=== PATIENT | male | born 1945 | race Caucasian/White ===

== ENCOUNTER 2018-02-15 14:31 | Observation (INO) | payer MEDICARE ==
[~2018-02-15] VITALS: Ht 177.8 cm; Wt 85.0 kg
[~2018-02-15 14:31] MED LIST: COZA50TA
[2018-02-15 14:35] VITALS: BP 172/88; PULSE 76; RESP 16; TEMP 98.6; O2SAT 98
[2018-02-15 14:43] VITALS: PULSE 77; RESP 18; TEMP 99.5; O2SAT 98
[2018-02-15] MEDS ORDERED: SODIUM CHLOR 0.9% 1000 ML INJ 1,000 ML IV ONE ×2 (14:47)
--- NOTE | 2018-02-15 15:01 | PD ---
HPI Chief Complaint: Fever Time Seen by Provider: 14:40 Travel History International Travel<30 days: No Contact w/Intl Traveler<30days: No Traveled to known affect area: No History of Present Illness HPI 72-year-old male presents with fevers since being discharged from [facility] yesterday. His T-max was 100.5. He was given Tylenol 1 hour prior to arrival. He states that he is also been having nausea and diarrhea. His states that when he was in the hospital he was septic and reveals records and states he had E. coli and was discharged on ciprofloxacin. She is concerned that the infection is not being fully treated and she wanted to get a second opinion. The patient denies any other concurrent complaints. Quality is high. Severity is 100.5. Duration is since discharge yesterday. PFSH Past Medical History Cancer: Yes (TONGUE) Cardiovascular Problems: Yes Diminished Hearing: No Genitourinary: Yes (POLYSYSTIC KIDNEY DISEASE) Hypertension: Yes Implanted Vascular Access Dvce: Yes (RT CHEST PORT) Kidney Stones: Yes Tetanus Vaccination: < 5 Years Influenza Vaccination: No Past Surgical History Genitourinary Surgery: Yes (LITHOTRIPSY ) Oral Surgery: Yes (CA ON TONGUE) Social History Alcohol Use: Yes (APPROX. 3 DRINKS PER DAY) Tobacco Use: No Substance Use: No Allergies-Medications (Allergen,Severity, Reaction): Coded Allergies: No Known Allergies (Verified Allergy, Mild, 03/15/06) Reported Meds & Prescriptions Reported Meds & Active Scripts Active Review of Systems Except as stated in HPI: all other systems reviewed are Neg Physical Exam Narrative GENERAL: 72-year-old male in no apparent distress SKIN: Focused skin assessment warm/dry. HEAD: Atraumatic. Normocephalic. EYES: Pupils equal and round. No scleral icterus. No injection or drainage. ENT: No nasal bleeding or discharge. Mucous membranes pink and moist. NECK: Trachea midline. CARDIOVASCULAR: Regular rate and rhythm. RESPIRATORY: No accessory muscle use. Clear to auscultation. Breath sounds equal bilaterally. GASTROINTESTINAL: Abdomen soft, non-tender, nondistended. MUSCULOSKELETAL: No obvious deformities. No clubbing. No cyanosis. No edema. NEUROLOGICAL: Awake and alert. No obvious cranial nerve deficits. Motor grossly within normal limits. Normal speech. PSYCHIATRIC: Appropriate mood and affect; insight and judgment normal. Data Data Last Documented VS Vital Signs Date Time Temp Pulse Resp B/P (MAP) Pulse Ox O2 Delivery O2 Flow Rate FiO2 02/15/18 15:17 70 18 150/80 (103) 99 Room Air 02/15/18 14:43 99.5 Orders Orders Sepsis Workup Initiated (02/15/18 ) Electrocardiogram (02/15/18 14:47) Complete Blood Count With Diff (02/15/18 14:47) Comprehensive Metabolic Panel (02/15/18 14:47) Prothrombin Time / Inr (Pt) (02/15/18 14:47) Act Partial Throm Time (Ptt) (02/15/18 14:47) Lactic Acid Sepsis Protocol (02/15/18 14:47) Magnesium (Mg) (02/15/18 14:47) Phosphorus (Po4) (02/15/18 14:47) Urinalysis - C+S If Indicated (02/15/18 14:47) Blood Culture (02/15/18 14:47) Chest, Single Ap (02/15/18 14:47) Ecg Monitoring (02/15/18 14:47) Iv Access Insert/Monitor (02/15/18 14:47) Oximetry (02/15/18 14:47) Sodium Chlor 0.9% 1000 Ml Inj (Ns 1000 M (02/15/18 14:47) Sodium Chlor 0.9% 1000 Ml Inj (Ns 1000 M (02/15/18 14:47) Piperacil-Tazo 3.375 Gm Premix (Zosyn 3. (02/15/18 17:00) Admit Order (Ed Use Only) (02/15/18 17:02) Labs Laboratory Tests Test 02/15/18 15:10 02/15/18 15:45 White Blood Count 5.6 TH/MM3 Red Blood Count 3.34 MIL/MM3 Hemoglobin 11.2 GM/DL Hematocrit 33.0 % Mean Corpuscular Volume 98.7 FL Mean Corpuscular Hemoglobin 33.4 PG Mean Corpuscular Hemoglobin Concent 33.9 % Red Cell Distribution Width 14.8 % Platelet Count 183 TH/MM3 Mean Platelet Volume 8.8 FL Neutrophils (%) (Auto) 84.1 % Lymphocytes (%) (Auto) 3.8 % Monocytes (%) (Auto) 10.8 % Eosinophils (%) (Auto) 0.9 % Basophils (%) (Auto) 0.4 % Neutrophils # (Auto) 4.7 TH/MM3 Lymphocytes # (Auto) 0.2 TH/MM3 Monocytes # (Auto) 0.6 TH/MM3 Eosinophils # (Auto) 0.0 TH/MM3 Basophils # (Auto) 0.0 TH/MM3 CBC Comment DIFF FINAL Differential Comment Blood Urea Nitrogen 15 MG/DL Creatinine 1.53 MG/DL Random Glucose 110 MG/DL Total Protein 6.3 GM/DL Albumin 2.2 GM/DL Calcium Level 8.1 MG/DL Phosphorus Level 2.5 MG/DL Magnesium Level 2.0 MG/DL Alkaline Phosphatase 191 U/L Aspartate Amino Transf (AST/SGOT) 42 U/L Alanine Aminotransferase (ALT/SGPT) 40 U/L Total Bilirubin 0.5 MG/DL Sodium Level 138 MEQ/L Potassium Level 3.7 MEQ/L Chloride Level 106 MEQ/L Carbon Dioxide Level 20.5 MEQ/L Anion Gap 12 MEQ/L Estimat Glomerular Filtration Rate 45 ML/MIN Lactic Acid Level 1.4 mmol/L Urine Color YELLOW Urine Turbidity CLEAR Urine pH 6.0 Urine Specific [place] 1.013 Urine Protein 30 mg/dL Urine Glucose (UA) NEG mg/dL Urine Ketones NEG mg/dL Urine Occult Blood NEG Urine Nitrite NEG Urine Bilirubin NEG Urine Urobilinogen LESS THAN 2.0 MG/DL Urine Leukocyte Esterase NEG Urine RBC 1 /hpf Urine WBC LESS THAN 1 /hpf Urine Mucus FEW /lpf Microscopic Urinalysis Comment CATH-CULT NOT IND MDM Medical Decision Making Medical Screen Exam Complete: Yes Emergency Medical Condition: Yes Medical Record Reviewed: Yes (Past history confirmed, multiple records from [facility] noted with 1 blood culture showing E. coli. Given Zosyn and then changed to ciprofloxacin. Initially he had acute renal failure as well.) Interpretation(s) CBC & BMP Diagram 02/15/18 15:10 Total Protein 6.3 L, Albumin 2.2 L, Calcium Level 8.1 L, Phosphorus Level 2.5, Magnesium Level 2.0, Alkaline Phosphatase 191 H, Aspartate Amino Transf (AST/ SGOT) 42 H, Alanine Aminotransferase (ALT/SGPT) 40, Total Bilirubin 0.5 Last 24 hours Impressions Chest X-Ray 02/15/18 1447 Signed Impressions: CONCLUSION: Compensated cardiomegaly. Elevation right hemidiaphragm. Differential Diagnosis Sepsis, UTI, gastroenteritis, renal failure Narrative Course Will check blood work, urinalysis, imaging and dose with IV fluids and reevaluate labs wnl, but given persistent fevers with recent sepsis I advised observation to the hospital for IV antibiotics and monitoring of blood culture. Patient states he is leaving AMA. AMA: The risks of leaving against medical advice without further evaluation treatment were discussed with the patient. These risks include cardiac dysfunction, cardiac dysrhythmia, possible heart attack, possible stroke or . The patient indicated understanding of these risks and appeared to have the capacity to make this decision. Physician Communication Physician Communication dr saldaña agrees to admit then updated patient decided to leave ama Diagnosis Primary Impression: Fever Qualified Codes: R50.9 - Fever, unspecified Additional Impressions: Diarrhea Qualified Codes: R19.7 - Diarrhea, unspecified Nausea Admitting Information Admitting Physician Requests: Observation Disposition: 07 AGAINST MEDICAL ADVICE Condition: Trinidad Wallace MD Feb 15, 2018 15:01
[2018-02-15 15:17] VITALS: BP 150/80; PULSE 70; RESP 18; O2SAT 99
[2018-02-15 15:35] LABS: AUTOMATED NEUTROPHIL # 4.7 TH/MM3 (1.8-7.7); BASOPHIL % 0.4 % (0.0-2.0); EOSINOPHIL % 0.9 % (0.0-4.0); HEMOGLOBIN 11.2 GM/DL (13.0-17.0); LYMPH % 3.8 % (9.0-44.0); LYMPHOCYTE # 0.2 TH/MM3 (1.0-4.8); MEAN CELL VOLUME 98.7 FL (80.0-100.0); MEAN CORPUSCULAR HEMOGLOBIN 33.4 PG (27.0-34.0); MEAN CORPUSCULAR HGB CONC 33.9 % (32.0-36.0); MEAN PLATELET VOLUME 8.8 FL (7.0-11.0); MONO % 10.8 % (0.0-8.0); MONOCYTE # 0.6 TH/MM3 (0-0.9); NEUT % 84.1 % (16.0-70.0); PLATELET COUNT 183 TH/MM3 (150-450); RED BLOOD COUNT 3.34 MIL/MM3 (4.50-5.90); RED CELL DISTRIBUTION WIDTH 14.8 % (11.6-17.2); WHITE BLOOD COUNT 5.6 TH/MM3 (4.0-11.0)
--- NOTE | 2018-02-15 16:07 | RADRPT ---
EXAM DATE: 02/15/2018 3:34 PM EDT AGE/SEX: 72 years / Male INDICATIONS: Fever. Just discharged from the hospital 24 hours ago. CLINICAL DATA: This is the patient's initial encounter. Patient reports that signs and symptoms have been present for 1 day and indicates a pain score of 0/10. MEDICAL/SURGICAL HISTORY: . bacterial infection. Small aortic aneurysm None. COMPARISON: No prior exams available for comparison. FINDINGS: [id number] in good position. Lungs are under aerated. With elevation right hemidiaphragm. Cardiome albina. The portion of the bony skeleton visualized is unremarkable. CONCLUSION: Compensated cardiomegaly. Elevation right hemidiaphragm. Electronically signed by: Emanuel Badillo MD 02/15/2018 3:37 PM EDT
[2018-02-15 16:12] LABS: ALBUMIN 2.2 GM/DL (3.4-5.0); ALT (GPT) 40 U/L (12-78); AST (GOT) 42 U/L (15-37); BICARBONATE 20.5 MEQ/L (21.0-32.0); BLOOD UREA NITROGEN 15 MG/DL (7-18); CALCIUM 8.1 MG/DL (8.5-10.1); CHLORIDE 106 MEQ/L (98-107); CREATININE 1.53 MG/DL (0.60-1.30); GLOMERULAR FILTRATION RATE 45 ML/MIN (>89); GLUCOSE,RANDOM 110 MG/DL (74-106); PHOSPHORUS 2.5 MG/DL (2.5-4.9); SODIUM (NA) 138 MEQ/L (136-145)
[2018-02-15 16:14] LABS: ALKALINE PHOSPHATASE 191 U/L (45-117); TOTAL BILIRUBIN ADULT 0.5 MG/DL (0.2-1.0); TOTAL PROTEIN 6.3 GM/DL (6.4-8.2)
[2018-02-15 16:22] LABS: BILIRUBIN, URINE NEG (NEG); BLOOD, URINE NEG (NEG); GLUCOSE,URINE NEG (NEG); KETONE, URINE NEG (NEG); MUCUS URINE FEW /lpf (OCC); NITRITE,URINE NEG (NEG); URINE COLOR YELLOW (YELLW/STRAW); URINE LEUKOCYTE ESTERASE NEG (NEG)
[2018-02-15] MEDS ORDERED: PIPERACIL-TAZO 3.375 GM PREMIX 50 ML IV ONE (17:00)
--- NOTE | 2018-02-16 18:18 | EKG ---
Date Performed: 02/15/2018 Time Performed: 14:11:28 PTAGE: 72 years EKG: Sinus rhythm LOW QRS VOLTAGE IN PRECORDIAL LEADS INCOMPLETE RIGHT BUNDLE BRANCH BLOCK BORDERLINE ECG NO PREVIOUS TRACING DOCTOR: Rosalind Rosario Interpretating Date/Time 02/16/2018 18:13:31
== END 2018-02-15 18:00 | disposition left against medical advice (07) ==
LOC: NEPE 14:31 → NEDA 17:04
PROVIDERS: ADMIT Internal Medicine; ATTEND Internal Medicine
DX: R50.9 Fever, unspecified (principal); R19.7 Diarrhea, unspecified; R11.0 Nausea; R94.31 Abnormal electrocardiogram [ECG] [EKG]
CPT/HCPCS: 71045; 80053; 81001; 83605; 83735; 84100; 85025; 87040; 93005; 96374; 99285; G0378; J2543; J7030